=== PATIENT | female | born 1985 | race Asian ===

== ENCOUNTER 2016-09-26 18:45 | Inpatient (IN) | payer SELFPAY ==
[~2016-09-26] VITALS: Ht 154.9 cm; Wt 69.9 kg
[2016-09-26] MEDS ORDERED: OXYTOCIN/NORMAL SALINE 1,000 ML IV SCH (20:11)
[2016-09-26] MEDS ORDERED: LR 500 ML IV ONE (20:11)
[2016-09-26] MEDS ORDERED: LR 1,000 ML IV ONE ×2 (20:11→20:39)
[2016-09-26] MEDS ORDERED: NALBUPHINE HCL 10 MG/ML AMP IVP PRN ×2 (20:15→20:45)
[2016-09-26] MEDS ORDERED: TERBUTALINE SULFATE 1 MG/ML VIAL SUBCUT ONE (20:15)
[2016-09-26 20:44] LABS: BASOPHILS % (AUTO) 0.3 % (0.0-2.0); EOSINOPHILS % (AUTO) 0.6 % (0.0-4.0); HEMATOCRIT 32.2 % (36-48); HEMOGLOBIN 10.9 g/dL (12.0-16.0); LYMPHOCYTES # (AUTO) 1.6 K/uL (1.0-5.5); LYMPHOCYTES % (AUTO) 20.9 % (20.5-51.5); MEAN CORPUSCULAR HEMOGLOBIN 30 pg (27-31); MEAN CORPUSCULAR HGB CONC 34 % (32-36); MEAN CORPUSCULAR VOLUME 88 fL (79.0-98.0); MONOCYTES # (AUTO) 0.5 K/uL (0.0-1.0); MONOCYTES % (AUTO) 6.5 % (1.7-9.3); NEUTROPHILS # (AUTO) 5.7 K/uL (1.8-7.7); NEUTROPHILS % (AUTO) 71.7 % (40.0-70.0); PLATELET COUNT (AUTO) 124 K/uL (130-430); RED BLOOD CELL COUNT(AUTO) 3.67 MIL/uL (4.2-6.2); RED CELL DISTRIBUTION WIDTH 15.8 % (9.0-15.0); WHITE BLOOD COUNT (AUTO) 7.8 K/uL (4.8-10.8)
[2016-09-26] MEDS ORDERED: ePHEDrine sulfate 50 MG/ML VIAL IVP PRN (20:45)
[2016-09-26] MEDS ORDERED: DIPHENHYDRAMINE INJ 50 MG/ML VIAL IVP PRN (20:45)
[2016-09-26] MEDS ORDERED: ONDANSETRON HCL 4 MG/2 ML VIAL IVP PRN ×2 (20:45)
[2016-09-26] MEDS ORDERED: NALOXONE HCL 0.4 MG/ML AMP (NARCAN) IVP PRN (20:45)
[2016-09-26] MEDS ORDERED: fentaNYL CITRATE/PF 100 MCG/2 ML AMP IVP PRN (20:45)
[2016-09-26] MEDS ORDERED: KETOROLAC TROMETHAMINE 30 MG VIAL IM PRN (20:45)
[2016-09-26] MEDS ORDERED: fentaNYL CITRATE/PF 100 MCG/2 ML AMP ONE (20:54)
[2016-09-26] MEDS ORDERED: fentaNYL CITRATE/PF 100 MCG/2 ML AMP EP ONE (20:54)
[2016-09-26] MEDS ORDERED: FENT2mCg/mL-ROPIVA0.2%/NS EPID 150 ML EP SCH (20:54)
[2016-09-26] MEDS ORDERED: FENT2mCg/mL-ROPIVA0.2%/NS EPID 150 ML EP ONE (20:56)
[2016-09-26] MEDS: LR 1,000 ML IV SCH (21:00)
[2016-09-26 23:21] VITALS: BP_SYST 107
[2016-09-27] MEDS: LR 1,000 ML IV SCH ×2 (00:02→05:20)
[2016-09-27] MEDS ORDERED: NALBUPHINE HCL 10 MG/ML AMP IVP ONE (06:30)
[2016-09-27] MEDS ORDERED: METHYLERGONOVINE MALEATE 0.2 MG/ML AMP ONE (09:26)
[2016-09-27] MEDS ORDERED: OXYTOCIN/NORMAL SALINE 1,000 ML IV ONE ×2 (09:27→09:47)
[2016-09-27] MEDS ORDERED: OXYTOCIN/NORMAL SALINE 1,000 ML IV SCH (09:27)
[2016-09-27] MEDS ORDERED: RHO(D) IMMUNE GLOBULIN/MALTOSE 1500 UNITS/1.3 ML (WINHRO) IM PRN (09:30)
[2016-09-27] MEDS ORDERED: TEMAZEPAM 15 MG CAPSULE PO PRN (09:30)
[2016-09-27] MEDS ORDERED: DOCUSATE SODIUM 100 MG CAPSULE PO PRN (09:30)
[2016-09-27] MEDS ORDERED: GLYCERIN/WITCH HAZEL (TUCKS PADS) TP PRN (09:30)
[2016-09-27] MEDS ORDERED: METHYLERGONOVINE MALEATE 0.2 MG TABLET PO PRN (09:30)
[2016-09-27] MEDS ORDERED: ACETAMINOPHEN 325 MG TABLET PO PRN (09:30)
[2016-09-27] MEDS ORDERED: HYDROcodone/ACETAMIN 5-325 MG TAB (NORCO/ VICODIN) PO PRN ×2 (09:30)
[2016-09-27] MEDS ORDERED: LANOLIN 7 GM OINT. TP PRN (09:30)
[2016-09-27] MEDS ORDERED: DERMOPLAST SPRAY TP PRN (09:30)
[2016-09-27] MEDS ORDERED: SENNOSIDES/DOCUSATE SODIUM 1 TAB TABLET(SENOKOT-S) PO PRN (09:30)
[2016-09-27] MEDS ORDERED: ANUSOL 1 EA SUPP.RECT (PREPARATION H) RC PRN (09:30)
[2016-09-27] MEDS ORDERED: HYDROCORTISONE 0.5%, 28.35 GM TOPICAL CREAM TP PRN (09:30)
[2016-09-27] MEDS ORDERED: MEASLES,MUMPS&RUBELLA VACC/PF 12500 UNIT/0.5 ML VIAL SUBQ PRN (09:30)
[2016-09-27] MEDS: IBUPROFEN 600 MG TABLET PO SCH (17:52)
[2016-09-28] MEDS: IBUPROFEN 600 MG TABLET PO SCH ×3 (00:05→12:18)
[2016-09-28 06:59] LABS: HEMATOCRIT 24.1 % (36-48); HEMOGLOBIN 7.9 g/dL (12.0-16.0)
[2016-09-28] MEDS ORDERED: DIPH-TET-PERTUS Vaccine 0.5 ML VIAL/Tdap (ADACEL) I.M. PRN (12:45)
[2016-09-28] MEDS ORDERED: BUPIVACAINE /PF 0.25% 30 ML VIAL INJ ONE (15:00)
== END 2016-09-28 17:35 | disposition home or self-care (01) | DRG 774 ==
LOC: SPU 18:45
PROVIDERS: ADMIT Obstetrics & Gynecology; ATTEND Obstetrics & Gynecology
PROC: 10D07Z6 Extraction of Products of Conception, Vacuum, Via Natural or Artificial Opening (ICD-10-PCS; principal; 2016-09-27)
PROC: 0W8NXZZ Division of Female Perineum, External Approach (ICD-10-PCS; 2016-09-27)
PROC: 3E0R3CZ (ICD-10-PCS; 2016-09-27)
PROC: 00HU33Z Insertion of Infusion Device into Spinal Canal, Percutaneous Approach (ICD-10-PCS; 2016-09-27)
PROC: 3E0134Z Introduction of Serum, Toxoid and Vaccine into Subcutaneous Tissue, Percutaneous Approach (ICD-10-PCS; 2016-09-27)
DX: O72.1 Other immediate postpartum hemorrhage (principal); Z3A.39 39 weeks gestation of pregnancy; Z37.0 Single live birth; Z23 Encounter for immunization
CPT/HCPCS: 36415; 81002-TC; 85018-TC; 85025; 86592; 86886; 86900; 86901; 90715; 94760; J2210; J2300; J2590; J3010; J3490; J7120